=== PATIENT | female | born 1935 | race Caucasian/White ===

== ENCOUNTER → 2023-06-20 | Outpatient (CLI) | payer MEDICARE, SELFPAY ==
--- NOTE | 2023-06-20 08:36 | CDU_ITS ---
Reason For Study: BILATERAL CAROTID STENOSIS Rt. Velocities/BP Lt. Velocities/BP Prox CCA 76.1/17.6 cm/sec. Prox CCA 70.9/17.0 cm/sec. Mid CCA 51.6/11.0 cm/sec. Mid CCA 67.2/18.8 cm/sec. Dist CCA 79.0/18.5 cm/sec. Dist CCA 68.1/16.1 cm/sec. Prox ICA 112.5/35.1 cm/sec. Prox ICA 63.6/21.6 cm/sec. Mid ICA 97.5/27.1 cm/sec. Mid ICA 83.2/18.0 cm/sec. Dist ICA 104.1/29.7 cm/sec. Dist ICA 55.0/20.6 cm/sec. Rt. ICA/CCA = 112.5/79.0=1.4. Lt. ICA/CCA = 83.2/67.2=1.2. Prox ECA 96.3/9.5 cm/sec. Prox ECA 84.6/6.9 cm/sec. Rt. Vert. 60.8/13.3 cm/sec. Lt. Vert. 33.1/9.5 cm/sec. Right Extracranial There is intimal thickening but no significant atherosclerotic plaque noted in the right common carotid artery. There is heterogeneous, irregular atherosclerotic plaque noted in the right internal carotid artery. The right internal carotid artery is very tortuous. There is intimal thickening but no significant atherosclerotic plaque noted in the right external carotid artery. Antegrade flow is noted in the right vertebral artery. Left Extracranial There is no significant atherosclerotic plaque noted in the left common carotid artery. There is heterogeneous, irregular atherosclerotic plaque noted in the left internal carotid artery. There is intimal thickening but no significant atherosclerotic plaque noted in the left external carotid artery. Antegrade flow is noted in the left vertebral artery. Procedure Carotid Duplex 28547. This is a Carotid Duplex examination using B-mode, color flow and specral Doppler. Exam performed in department. VL/Carotid Duplex Ultrasound Interpretation Summary Mild (<50%) stenosis right extracranial internal carotid. Mild (<50%) stenosis left extracranial internal carotid. Flow within the vertebral arteries is antegrade bilaterally. Ordering Physician: Hola Machado Referring Physician: Kandice Hammer Performed By: Nolvia Desai, ROBE, RVT
== END | disposition home or self-care (01) ==
LOC: CVS 08:33
PROVIDERS: PCP Physician Assistant; Referring Provider Surgery Vascular Surgery; Visit Provider Surgery Vascular Surgery
DX: I65.23 Occlusion and stenosis of bilateral carotid arteries (principal)
CPT/HCPCS: 93880